=== PATIENT | male | born 1965 | race Caucasian/White ===

== ENCOUNTER 2023-10-03 09:57 | Emergency (ER) | payer OTHER, SELFPAY ==
[2023-10-03 10:06] VITALS: BP 133/82
[2023-10-03 10:27] LABS: % Basophils 0.4 % (0-2); % Eosinophils 1.9 % (0-6); % Immature Granulocytes 0.1 % (0-0.5); % Lymphocytes 16.6 % (20.5-51.1); % Monocytes 10.6 % (1.7-9.3); % Neutrophils 70.4 % (42.2-75.2); Absolute Eosinophils 0.1 10^3/uL (0-0.7); Absolute Lymphocytes 1.1 10^3/uL (1.2-3.4); Absolute Monocytes 0.7 10^3/uL (0.1-0.6); Absolute Neutrophils 4.8 10^3/uL (1.4-6.5); Hematocrit 39.7 % (39.0-52.0); Hemoglobin 14.2 g/dL (13.0-18.0); Mean Corp Hgb Conc. 35.8 g/dL (33.0-37.0); Mean Corpuscular Hgb 31.8 pg (27.0-31.0); Mean Platelet Volume 8.8 fL (7.4-10.4); Nucleated Red Blood Cells % 0 % (-); Platelet Count 190 10^3/uL (130-400); Red Blood Cell Count 4.46 10^6/uL (4.70-6.10); Red Cell Dist. Width 11.5 % (11.5-14.5); White Blood Cell Count 6.8 10^3/uL (4.8-10.8)
[2023-10-03 10:35] VITALS: BP 131/90
--- NOTE | 2023-10-03 10:43 | ED.GENMED ---
History of Present Illness
General
Chief Complaint: Chest Pain
Source: patient
Exam Limitations: none
Time Seen by Provider: 10/03/23 10:28
Nursing documentation reviewed up to this point in time: agreed with
Travel History
Have you had any contact with someone who has COVID-19?: No
Do you have any symptoms of coronavirus? Fever > 100 degrees, chills, cough, shortness of breath, sore throat, loss of taste or smell, muscle aches, or headache?: No
History of Present Illness
History of Present Illness:
Patient presents to ED secondary to continual chest pain since yesterday evening. Chest pain described as stabbing, nonradiating, with associated lower teeth discomfort. Denies shortness of breath. Denies nausea, vomiting, or dizziness. Denies
diaphoresis. Chest pain worse with certain movements, but present at rest. Denies recent illness. Denies recent travel. Denies back pain. Denies previous history of similar chest pain. Denies leg pain or swelling. Denies recent surgery.
Denies smoking. There is family history of early heart disease, with his father having had heart attack when he was 52 years old.
Review of Systems
Review of Systems
Allergies reviewed?: Yes
All Other Systems: ROS reviewed and negative except as documented in HPI and ROS
Constitutional: Reports no symptoms
EENT: Reports no symptoms
Respiratory: Reports no symptoms; Denies trouble breathing
Cardiac: Reports chest pain; Denies diaphoresis
ABD/GI: Reports no symptoms; Denies nausea
Musculoskeletal: Reports no symptoms
Skin: Reports no symptoms
Neurological: Reports no symptoms
Phy Exam
Physical Exam
Physical Exam:
Physical Exam
General: no apparent distress, not acutely ill. afebrile
Head: nc/at. eomi
Neck: supple. normal range of motion.
Heart: s1/s2 regular rate and rhythm, no murmur. equal radial pulses.
Lungs: no acute respiratory distress. clear bilaterally
Abdomen: normal bowel sounds. not tender.
Neuro: alert and oriented. no focal neurological deficits
Skin: no rash
Psychiatric: well kept. interactive and cooperative
Extremities: no edema. no calf tenderness.
Scores
Heart Score for Chest Pain Patients
STEMI patient?: No
History: Slightly or Non-Suspicious
ECG: Normal
Age: >45 - <65 years
Risk Factors: 1 or 2 Risk Factors
Troponin: </= Normal Limit
Heart Score for Chest Pain Patients: 2
Heart Score Risk: 2.5% MACE over next 6 weeks
Course
Orders/Labs/Results
Orders:
Orders
10/03/23 10:00
ECG [Electrocardiogram (*1)] Urgent
Reason for Study: Chest Pain
EKG- Treatment ONCE
10/03/23 10:18
Complete Blood Count/With Diff Urgent
Comprehensive Metabolic Panel Urgent
Troponin I Urgent
10/03/23 10:40
0.9% Sodium Chloride 500 ml [Nss] 500 ml IV BOLUS
Nitroglycerin Sublingual [Nitrostat (Sublingual)] 0.4 mg SL NOW STA
CR Chest Portable - 1 View Urgent
Comment:
Reason For Exam: chest pain
Reason Study Needs to be Portable: Patient Unstable
10/03/23 10:50
0.9% Sodium Chloride 1000 ml [Nss] 1,000 ml IV BOLUS
10/03/23 11:58
EKG- Treatment ONCE
10/03/23 13:00
Electrocardiogram (*1) Urgent
Reason for Study: Chest Pain
D-Dimer Urgent
Troponin I Urgent
Abnormal Lab Results
10/03/23
10:18
RBC 4.46 L 10^6/uL
(4.70-6.10)
MCH 31.8 H pg
(27.0-31.0)
Absolute Lymphs (auto) 1.1 L 10^3/uL
(1.2-3.4)
Absolute Monos (auto) 0.7 H 10^3/uL
(0.1-0.6)
Lymphocytes % 16.6 L %
(20.5-51.1)
Monocytes % 10.6 H %
(1.7-9.3)
Chloride 108 H mmol/L
(98-107)
Glucose 109 H mg/dl
(70-99)
10/03/23 10:18
10/03/23 10:18
Vital Signs
Initial and Last Documented VS:
Initial Vital Signs
Temp Pulse BP Pulse Ox
98.6 F 67 133/82 98
10/03/23 10:06 10/03/23 10:06 10/03/23 10:06 10/03/23 10:06
Last Documented Vital Signs
Temp Pulse Resp BP Pulse Ox
98.6 F 61 18 122/66 99
10/03/23 10:06 10/03/23 14:45 10/03/23 14:45 10/03/23 14:00 10/03/23 14:45
MDM/Problems Addressed
MDM/Problems Addressed:
Patient with an unremarkable workup in ED, including repeat troponin and EKG. Patient remains hemodynamically stable without any acute distress.
Discussed with on-call lead software qa engineer, Dr. Madison. Will discharge patient home for urgent outpatient f/u, with aspirin 81mg daily.
Patient and family agree with treatment plan. Advised to return to ED immediately with worsening chest pain and/or any other symptoms.
*EKG
Interpreted by ED Provider?: Yes
EKG Intrepretation Date: 10/03/23
Heart Rate: 67
Rate: normal
Rhythm: sinus
[place]: normal axis
Interval: normal interval
*Critical Care Note
Total Time (30-74mins, 75-104mins- exclusive of procedures): Not Applicable
ED Attending Note
-
Portions of this chart may have been created with voice recognition software.� Occasional wrong word or��sound alike� substitutions may have occurred due to the inherent limitations of voice recognition software.
Discharge Plan
Departure
Patient Disposition: Home (Routine Discharge)
Date of Disposition: 10/03/23
Time of Disposition: 14:46
Patient with high blood pressure during this ER visit?: Yes
Discharge Problem:
Chest pain
Instructions: Chest Pain DCA Follow Up
Referrals:
Luc Sanchez MD [Family Provider] -
Lary Madison DO [Active] -
Activity Restrictions/Additional Instructions:
As discussed, please follow-up with referred lead software qa engineer for further evaluation and treatment. Until then, recommend taking 81 mg aspirin daily. Please return to ED immediately with worsening symptoms.
Interventions
Interventions:
*Risk Screen - Suicide Last Done: 10/03/23 10:37
*General Assessment Last Done: 10/03/23 10:37
*Neglect/Abuse Screening Last Done: 10/03/23 10:37
ED- Fall Risk Assessment Last Done: 10/03/23 15:03
*ED COVID-19 Vaccine History Last Done: 10/03/23 10:37
*Nursing Disposition Last Done: 10/03/23 15:03
ED- Cardiac Assessment Last Done: 10/03/23 10:37
Discharge Date and Time
Discharge Date/Time: 10/03/23 15:10
Print Language: HUNGARIAN
[2023-10-03 10:44] LABS: ALT (SGPT) 27 U/L (0-50); AST (SGOT) 25 U/L (17-59); Albumin 4.5 g/dl (3.5-5.0); Alkaline Phosphatase 71 U/L (38-126); Blood Urea Nitrogen 18 mg/dl (9-20); Calcium 9.9 mg/dl (8.4-10.2); Carbon Dioxide 25 mmol/L (22-30); Chloride 108 mmol/L (98-107); Glucose 109 mg/dl (70-99); Potassium 4.2 mmol/L (3.5-5.1); Sodium 137 mmol/L (135-145); Total Bilirubin 1.2 mg/dl (0.2-1.3); Total Protein 7.3 g/dl (6.3-8.2); eGFR > 60.00
[2023-10-03] MEDS: NITROSTAT (SUBLINGUAL) 0.400000000000000022 MG SL (10:49)
[2023-10-03 10:50] LABS: Troponin I < 0.012 ng/ml
[2023-10-03] MEDS: NSS 1000 IV (10:51)
[2023-10-03 11:00] VITALS: BP 117/81
[2023-10-03 12:00] VITALS: BP 108/77
[2023-10-03 13:00] VITALS: BP 124/77
[2023-10-03 13:35] LABS: D-Dimer < 0.27 ug/mlFEU (0.00-0.50)
[2023-10-03 13:37] LABS: Troponin I < 0.012 ng/ml
[2023-10-03 14:00] VITALS: BP 122/66
== END 2023-10-03 15:10 | disposition home or self-care (01) ==
LOC: EMR 09:57
PROVIDERS: Emergency Medicine; EMERGENCY PHYSICIAN Emergency Medicine; FAMILY PHYSICIAN Family Medicine
DX: R07.89 Other chest pain (principal); K08.89 Other specified disorders of teeth and supporting structures; Z82.49 Family history of ischemic heart disease and other diseases of the circulatory system
CPT/HCPCS: 99284; 96360; 71045; 80053; 84484; 85025; 85379; 93005

== ENCOUNTER → 2023-12-04 12:53 | Outpatient (REF) | payer OTHER, SELFPAY | LOC: HWRCS 12:53 | PROVIDERS: ATTENDING PHYSICIAN Internal Medicine Cardiovascular Disease; FAMILY PHYSICIAN Family Medicine | DX: R07.2 Precordial pain (principal); R42 Dizziness and giddiness | CPT/HCPCS: 93017; 93306 ==